=== PATIENT | female | born 1965 | race Caucasian/White ===

== ENCOUNTER 2017-11-30 12:37 | Emergency (ER) | payer SELFPAY ==
[2017-11-30 12:56] VITALS: BP 164/93; PULSE 68; RESP 18; TEMP 97.9; O2SAT 100
--- NOTE | 2017-11-30 14:19 | C.PDOC ---
History Of Present Illness 52 year old female presents to the ED requesting evaluation for a FB sensation in her left arm. Patient reports she had blood work done today and patient feels like " she had a foreign body" in her left antecubital area. Patient denies weakness, numbness, injury, fall, trauma. Time Seen by Provider: 11/30/17 13:12 Chief Complaint (Nursing): Medical Clearance History Per: Patient History/Exam Limitations: no limitations Onset/Duration Of Symptoms: Days Current Symptoms Are (Timing): Still Present Recent travel outside of the [place]: No Additional History Per: Patient Past Medical History Reviewed: Historical Data, Nursing Documentation, Vital Signs Vital Signs: Last Vital Signs Temp 97.9 F 11/30/17 12:53 Pulse 68 11/30/17 12:53 Resp 18 11/30/17 12:53 BP 164/93 H 11/30/17 12:53 Pulse Ox 100 11/30/17 14:21 - Medical History PMH: No Chronic Diseases Surgical History: No Surg Hx Family History: States: Unknown Family Hx - Social History Hx Alcohol Use: No Hx Substance Use: No - Immunization History Hx Tetanus Toxoid Vaccination: No Hx Influenza Vaccination: No Hx Pneumococcal Vaccination: No Review Of Systems Constitutional: Negative for: Fever, Chills Cardiovascular: Negative for: Chest Pain Respiratory: Negative for: Shortness of Breath Gastrointestinal: Negative for: Abdominal Pain Musculoskeletal: Positive for: Arm Pain Skin: Negative for: Rash Physical Exam - Physical Exam Appears: Non-toxic, No Acute Distress Skin: Normal Color, Warm, Dry, Other (punture sheryl to antecubital area on the left arm) Head: Atraumatic, Normacephalic Eye(s): bilateral: Normal Inspection Extremity: Normal ROM, No Tenderness, Capillary Refill (< 2 seconds), No Swelling, Other (left antecubital area no FB palpable, no bleeding.) Pulses: Left Radial: Normal, Right Radial: Normal Neurological/Psych: Oriented x3, Normal Motor, Normal Sensation Gait: Steady ED Course And Treatment O2 Sat by Pulse Oximetry: 100 (ON RA) Pulse Ox Interpretation: Normal - Other Rad Left Elbow X-Ray X-Ray: Read By Radiologist Interpretation: Accession No. : [id number]. Patient Name / ID : MELINA DIMAS / [id number]. Exam Date : 11/30/2017 13:30:51 ( Approved ). Study Comment : Sex / Age : F / 52Y. Creator : Bakari Nguyen MD. Dictator : Bakari Nguyen MD. Property Inspector : Shipwright : Bakari Nguyen MD. Approver2 : Report Date : 11/30/2017 14:54:36. My Comment : . PROCEDURE: Radiographs of the left elbow. HISTORY: had blood work today, FB senstion. COMPARISON: No prior. FINDINGS: BONES: Normal. No fracture. JOINTS: Normal. No osteoarthritis. SOFT TISSUES: Normal. JOINT EFFUSION: None. OTHER FINDINGS: None. IMPRESSION: Unremarkable radiographs of the left elbow. No visulaized radiopaque/visualized foreign body. Medical Decision Making Medical Decision Making: Impression: FB sensation left arm Plan: * Left elbow X-Ray Disposition - Disposition Disposition: HOME/ ROUTINE Disposition Time: 14:09 Condition: STABLE Additional Instructions: Follow up with your PMD within 1-2 days. Return to ED if feel worse. 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 - Scribe Statement The provider has reviewed the documentation as recorded by the Scribe Yao Bledsoe All medical record entries made by the Scribe were at my direction and personally dictated by me. I have reviewed the chart and agree that the record accurately reflects my personal performance of the history, physical exam, medical decision making, and the department course for this patient. I have also personally directed, reviewed, and agree with the discharge instructions and disposition.
--- NOTE | 2017-11-30 14:55 | RAD ---
PROCEDURE: Radiographs of the left elbow. HISTORY: had blood work today, FB senstion COMPARISON: No prior. FINDINGS: BONES: Normal. No fracture. JOINTS: Normal. No osteoarthritis. SOFT TISSUES: Normal. JOINT EFFUSION: None. OTHER FINDINGS: None IMPRESSION: Unremarkable radiographs of the left elbow. No visulaized radiopaque/visualized foreign body.
== END 2017-11-30 14:42 | disposition home or self-care (01) ==
LOC: C.ER 12:37
DX: M79.602 Pain in left arm (principal)